=== PATIENT | male | born 1935 | race Caucasian/White ===

== ENCOUNTER 2016-12-22 15:49 | Emergency (ER) | payer MEDICARE, OTHER ==
[~2016-12-22] VITALS: Ht 172.7 cm; Wt 67.3 kg
[~2016-12-22 15:49] MED LIST: ASPI-496 PO; CEPH-376 PO; GABA300C10 PO; TAMS-11; TERA2CAP3 PO
[2016-12-22 15:52] VITALS: BP 120/71
[2016-12-22] MEDS ORDERED: LISI-170 PO (16:24)
[2016-12-22 16:55] LABS: HEMATOCRIT 45.4 % (39.2-51.8); HEMOGLOBIN 15.3 g/dL (13.7-18.0)
[2016-12-22 17:03] LABS: BLOOD UREA NITROGEN 16 mg/dL (7-18)
== END 2016-12-22 17:59 | disposition home or self-care (01) ==
LOC: ED 16:39
DX: S61.203A Unspecified open wound of left middle finger without damage to nail, initial encounter (principal); I10 Essential (primary) hypertension; Z87.891 Personal history of nicotine dependence; X58.XXXA Exposure to other specified factors, initial encounter; Y93.89 Activity, other specified; Y92.89 Other specified places as the place of occurrence of the external cause; Y99.8 Other external cause status
CPT/HCPCS: 36415; 80048; 82040; 85025; 99285

== ENCOUNTER → 2016-12-31 | Outpatient (CLI) | payer MEDICARE, OTHER ==
[~2016-12-31] MED LIST changes: +LISI-170 PO
== END | disposition home or self-care (01) ==
LOC: WOUND 07:38
PROVIDERS: ATTEND Physician Assistant
DX: S61.200D Unspecified open wound of right index finger without damage to nail, subsequent encounter (principal); I10 Essential (primary) hypertension; R60.0 Localized edema; I35.1 Nonrheumatic aortic (valve) insufficiency; F17.210 Nicotine dependence, cigarettes, uncomplicated; Z72.89 Other problems related to lifestyle; X58.XXXD Exposure to other specified factors, subsequent encounter
CPT/HCPCS: G0463; WOU0463

== ENCOUNTER 2019-09-08 17:56 | Inpatient (IN) | payer MEDICARE, OTHER ==
[~2019-09-08] VITALS: Ht 172.7 cm; Wt 70.8 kg
--- NOTE | 2019-09-08 18:18 | NUR ---
PT IN HOSPITAL GOWN, ALL CLOTHING REMOVED. PT UNABLE TO ASSIST WITH REMOVAL OF PANTS, PANTS CUT OFF WITH PT OKAY. PT ON CARDIAC AND VITALS MONITORS. PT A&OX4, C/O ALVAREZ, STATED FELL BACKWARDS 4 DAYS AGO AND HIT TOP OF HEAD ON WALL. PT DENIED LOC AFTER FALL. SMALL AREA OF SWELLING ON PALPATION. PER EMS, PT HAD SMALL SYNCOPAL EPISOPE WHEN THEY ARRIVED.
--- NOTE | 2019-09-08 18:18 | NUR ---
report received from hema wade.
[2019-09-08] MEDS ORDERED: ATORVASTATIN PO (18:24)
[2019-09-08] MEDS ORDERED: PLAVIX PO (18:24)
[2019-09-08] MEDS ORDERED: CHANTIX (18:24)
[2019-09-08] MEDS ORDERED: TERAZOSIN PO (18:24)
[2019-09-08] MEDS ORDERED: AMOXICILLIN (18:24)
[2019-09-08] MEDS ORDERED: ELLIPTA (18:24)
--- NOTE | 2019-09-08 18:24 | NUR ---
PT DAUGHTER HERE WITH PT JAYMIE MONSIVAIS - JAILENE [phone]
--- NOTE | 2019-09-08 18:32 | NUR ---
ONLY MED NAMES GIVEN FROM EMS. PT DAUGHTER STATED SHE CAN GET THE BOTTLES FROM PT HOME. MED REC UPDATED PER EMS MED LIST.
--- NOTE | 2019-09-08 18:44 | NUR ---
edmd at bedside to evaluate at this time.
--- NOTE | 2019-09-08 18:51 | NUR ---
report given to hilda wade.
[2019-09-08] MEDS ORDERED: SODIUM CHLORIDE FLUSH 10ML SYR IVF ONE (19:00)
--- NOTE | 2019-09-08 19:01 | NUR ---
Bladder scan showed >200ml.
[2019-09-08 19:08] LABS: BASOPHILS # (AUTO) 0.03 x10^3/uL (0-0.1); BASOPHILS % (AUTO) 0 % (0-1); EOSINOPHILS % (AUTO) 0 % (1-7); LYMPHOCYTES # (AUTO) 0.83 x10^3/uL (1-3.4); LYMPHOCYTES % (AUTO) 6 % (22-44); MD NO; MEAN CORPUSCULAR HEMOGLOBIN 29.7 pg (27.5-34.5); MEAN CORPUSCULAR HGB CONC 33.2 g/dL (33.2-36.2); MEAN CORPUSCULAR VOLUME 89.3 fL (81-97); MEAN PLATELET VOLUME 10.4 fL (7.4-10.4); MONOCYTES # (AUTO) 1.17 x10^3/uL (0.2-0.8); MONOCYTES % (AUTO) 9 % (2-9); NEUTROPHILS # (AUTO) 11.36 x10^3/uL (1.8-6.8); NEUTROPHILS % (AUTO) 85 % (42-75); PLATELET COUNT 296 x10^3/uL (130-400); RED BLOOD COUNT 5.23 x10^6/uL (4.38-5.82); RED CELL DISTRIBUTION WIDTH 14.3 % (9.4-14.8)
[2019-09-08 19:13] LABS: ALANINE AMINOTRANSFERASE 34 U/L (12-78); ALBUMIN 3.5 g/dL (3.4-5.0); ANION GAP 7 mmol/L (5-15); CALCIUM 8.4 mg/dL (8.5-10.1); CHLORIDE 99 mmol/L (98-107); CREATININE 0.89 mg/dL (0.7-1.3)
[2019-09-08 19:16] LABS: ALKALINE PHOSPHATASE 97 U/L (45-117); BILIRUBIN,TOTAL 1.2 mg/dL (0.2-1.0); TOTAL PROTEIN 7.2 g/dL (6.4-8.2)
[2019-09-08] MEDS ORDERED: LIDOCAINE 2%,20 ML JEL.PF.APP MM ONE (20:13)
--- NOTE | 2019-09-08 20:17 | NUR ---
Pt having 200cc+ of urine, unable to urinate, pt to have cath per md and pt okay with this. Pt reports severe retention. PT HAd urojet applied to penis prior to insertion attempt that will occur post 10 minutes.
--- NOTE | 2019-09-08 20:47 | NUR ---
Tsang Cath placed with MD Daniels, pt had 18 g double lumen. Pt tolerated procedure well.
--- NOTE | 2019-09-08 20:49 | NUR ---
UA COLLECTED AND SENT TO LAB.
--- NOTE | 2019-09-08 20:49 | NUR ---
Lyric keller in [facility] - 09/08/19 at 2049 by ALEKS UA collected and sent to lab.
[2019-09-08 21:05] LABS: MICROSCOPIC AUTO
[2019-09-08] MEDS ORDERED: HYDROcodone/APAP 5/325 TABLET PO ONE (23:00)
[2019-09-08] MEDS ORDERED: ONDANSETRON ODT 4 MG PO PRN (23:00)
[2019-09-08] MEDS ORDERED: hydrALAzine 20 MG/ML, 1ML IVPush PRN (23:00)
[2019-09-09 00:20] VITALS: BP 153/89
[2019-09-09] MEDS: HEPARIN 5,000 UNITS/ML, 1ML SQ SCH ×3 (00:43→15:29)
[2019-09-09] MEDS: GABAPENTIN 300 MG CAPSULE PO SCH ×4 (00:43→21:35)
[2019-09-09] MEDS: NS + 20MEQ KCL 1,000 ML IV SCH ×2 (00:44→12:22)
[2019-09-09 05:26] LABS: MEAN CORPUSCULAR HEMOGLOBIN 29.8 pg (27.5-34.5); MEAN CORPUSCULAR HGB CONC 32.8 g/dL (33.2-36.2); MEAN CORPUSCULAR VOLUME 90.6 fL (81-97); MEAN PLATELET VOLUME 10.2 fL (7.4-10.4); PLATELET COUNT 260 x10^3/uL (130-400); RED BLOOD COUNT 4.98 x10^6/uL (4.38-5.82); RED CELL DISTRIBUTION WIDTH 13.8 % (9.4-14.8)
[2019-09-09 05:39] LABS: ANION GAP 7 mmol/L (5-15); CALCIUM 8.3 mg/dL (8.5-10.1); CHLORIDE 101 mmol/L (98-107)
[2019-09-09 05:42] LABS: CREATININE 0.87 mg/dL (0.7-1.3)
[2019-09-09 05:56] LABS: BASOPHILS # (AUTO) 0.07 x10^3/uL (0-0.1); BASOPHILS % (AUTO) 1 % (0-1); EOSINOPHILS # (AUTO) 0.14 x10^3/uL (0-0.4); EOSINOPHILS % (AUTO) 1 % (1-7); LYMPHOCYTES # (AUTO) 1.77 x10^3/uL (1-3.4); LYMPHOCYTES % (AUTO) 13 % (22-44); MD SCAN; MONOCYTES # (AUTO) 1.52 x10^3/uL (0.2-0.8); MONOCYTES % (AUTO) 12 % (2-9); NEUTROPHILS # (AUTO) 9.78 x10^3/uL (1.8-6.8); NEUTROPHILS % (AUTO) 74 % (42-75)
[2019-09-09] MEDS: OXYcodone IR 5MG TABLET PO PRN ×2 (08:08→13:20)
[2019-09-09] MEDS: SENNA/DOCUSATE TABLET PO SCH (08:09)
[2019-09-09 08:54] VITALS: BP 117/72
[2019-09-09 09:19] LABS: CLOSTRIDIUM DIFFICILE ANTIGEN NEGATIVE; CLOSTRIDIUM DIFFICILE TOXIN NEGATIVE (Negative)
[2019-09-09 14:08] VITALS: BP 150/87
[2019-09-09] MEDS ORDERED: POTASSIUM CHLORIDE 40 MEQ in SODIUM CHLORIDE 0.9% 500 ML IV ONE (17:30)
[2019-09-09 19:32] VITALS: BP 122/73
[2019-09-09] MEDS: TERAZOSIN 2MG CAPSULE PO SCH (21:35)
[2019-09-09] MEDS: ATORVASTATIN 40 MG TABLET PO SCH (21:36)
[2019-09-10] MEDS: HEPARIN 5,000 UNITS/ML, 1ML SQ SCH ×3 (01:02→17:10)
[2019-09-10 01:07] VITALS: BP 150/80
[2019-09-10] MEDS: NS + 20MEQ KCL 1,000 ML IV SCH ×2 (05:25→15:21)
[2019-09-10 05:41] LABS: ANION GAP 6 mmol/L (5-15); CALCIUM 7.9 mg/dL (8.5-10.1); CHLORIDE 106 mmol/L (98-107); CREATININE 0.82 mg/dL (0.7-1.3)
[2019-09-10 05:54] LABS: MEAN CORPUSCULAR HEMOGLOBIN 29.6 pg (27.5-34.5); MEAN CORPUSCULAR HGB CONC 32.8 g/dL (33.2-36.2); MEAN CORPUSCULAR VOLUME 90.4 fL (81-97); RED BLOOD COUNT 4.65 x10^6/uL (4.38-5.82); RED CELL DISTRIBUTION WIDTH 14.2 % (9.4-14.8)
[2019-09-10 06:18] LABS: BASOPHILS # (AUTO) 0.02 x10^3/uL (0-0.1); BASOPHILS % (AUTO) 0 % (0-1); EOSINOPHILS # (AUTO) 0.16 x10^3/uL (0-0.4); EOSINOPHILS % (AUTO) 1 % (1-7); LYMPHOCYTES % (AUTO) 11 % (22-44); MD SCAN; MEAN PLATELET VOLUME 10.3 fL (7.4-10.4); MONOCYTES # (AUTO) 1.16 x10^3/uL (0.2-0.8); MONOCYTES % (AUTO) 10 % (2-9); NEUTROPHILS # (AUTO) 8.66 x10^3/uL (1.8-6.8); NEUTROPHILS % (AUTO) 77 % (42-75); PLATELET COUNT 232 x10^3/uL (130-400)
[2019-09-10 07:47] VITALS: BP 146/77
[2019-09-10] MEDS: LISINOPRIL 10 MG TABLET PO SCH (08:04)
[2019-09-10] MEDS: GABAPENTIN 300 MG CAPSULE PO SCH ×3 (08:04→22:05)
[2019-09-10] MEDS: SENNA/DOCUSATE TABLET PO SCH (08:04)
[2019-09-10] MEDS: OXYcodone IR 5MG TABLET PO PRN (08:05)
[2019-09-10 14:05] VITALS: BP 144/75
[2019-09-10 18:56] VITALS: BP 147/62
[2019-09-10] MEDS: TERAZOSIN 2MG CAPSULE PO SCH (22:05)
[2019-09-10] MEDS: ATORVASTATIN 40 MG TABLET PO SCH (22:05)
[2019-09-11 00:38] VITALS: BP 145/93
[2019-09-11] MEDS: HEPARIN 5,000 UNITS/ML, 1ML SQ SCH ×3 (01:43→17:45)
[2019-09-11] MEDS: NS + 20MEQ KCL 1,000 ML IV SCH ×3 (01:43→23:18)
[2019-09-11] MEDS: ACETAMINOPHEN 325 MG TABLET PO PRN ×2 (01:48→20:56)
[2019-09-11 05:46] LABS: ANION GAP 7 mmol/L (5-15); BASOPHILS # (AUTO) 0.07 x10^3/uL (0-0.1); BASOPHILS % (AUTO) 1 % (0-1); CALCIUM 7.8 mg/dL (8.5-10.1); CHLORIDE 108 mmol/L (98-107); CREATININE 0.81 mg/dL (0.7-1.3); EOSINOPHILS # (AUTO) 0.22 x10^3/uL (0-0.4); EOSINOPHILS % (AUTO) 2 % (1-7); LYMPHOCYTES # (AUTO) 1.58 x10^3/uL (1-3.4); LYMPHOCYTES % (AUTO) 13 % (22-44); MD NO; MEAN CORPUSCULAR HEMOGLOBIN 29.9 pg (27.5-34.5); MEAN CORPUSCULAR HGB CONC 32.7 g/dL (33.2-36.2); MEAN CORPUSCULAR VOLUME 91.7 fL (81-97); MEAN PLATELET VOLUME 10.1 fL (7.4-10.4); MONOCYTES # (AUTO) 1.22 x10^3/uL (0.2-0.8); MONOCYTES % (AUTO) 10 % (2-9); NEUTROPHILS # (AUTO) 9.27 x10^3/uL (1.8-6.8); NEUTROPHILS % (AUTO) 75 % (42-75); PLATELET COUNT 236 x10^3/uL (130-400)
[2019-09-11 07:18] VITALS: BP 129/73
[2019-09-11] MEDS: GABAPENTIN 300 MG CAPSULE PO SCH ×3 (08:59→20:56)
[2019-09-11] MEDS: LISINOPRIL 10 MG TABLET PO SCH (08:59)
[2019-09-11] MEDS: SENNA/DOCUSATE TABLET PO SCH (09:00)
--- NOTE | 2019-09-11 12:32 | NUR ---
OT evaluation completed. Patient is unsafe for return home at this time. He will benefit from inpatient therapies at [facility] Addendum: 09/11/19 at 1305 by Hadley Velasquez OT Amended: Links added.
[2019-09-11 12:48] VITALS: BP 154/76
[2019-09-11] MEDS ORDERED: GADOTERATE 10 MMOL/20 ML SYR ONE (16:50)
[2019-09-11 19:04] VITALS: BP 182/84
[2019-09-11 19:45] VITALS: BP 186/96
[2019-09-11 20:27] VITALS: BP 165/80
[2019-09-11] MEDS: ATORVASTATIN 40 MG TABLET PO SCH (20:56)
[2019-09-11] MEDS: TERAZOSIN 2MG CAPSULE PO SCH (20:56)
[2019-09-12 01:05] VITALS: BP 100/60
[2019-09-12] MEDS: HEPARIN 5,000 UNITS/ML, 1ML SQ SCH ×3 (01:51→17:14)
[2019-09-12 05:09] LABS: ANION GAP 5 mmol/L (5-15); CHLORIDE 105 mmol/L (98-107); CREATININE 0.76 mg/dL (0.7-1.3)
[2019-09-12 06:20] LABS: BASOPHILS # (AUTO) 0.03 x10^3/uL (0-0.1); BASOPHILS % (AUTO) 0 % (0-1); EOSINOPHILS # (AUTO) 0.25 x10^3/uL (0-0.4); EOSINOPHILS % (AUTO) 2 % (1-7); LYMPHOCYTES # (AUTO) 1.61 x10^3/uL (1-3.4); LYMPHOCYTES % (AUTO) 13 % (22-44); MD SCAN; MEAN CORPUSCULAR HGB CONC 32.6 g/dL (33.2-36.2); MEAN CORPUSCULAR VOLUME 91.8 fL (81-97); MEAN PLATELET VOLUME 10.3 fL (7.4-10.4); MONOCYTES # (AUTO) 1.43 x10^3/uL (0.2-0.8); MONOCYTES % (AUTO) 11 % (2-9); NEUTROPHILS # (AUTO) 9.34 x10^3/uL (1.8-6.8); NEUTROPHILS % (AUTO) 74 % (42-75); PLATELET COUNT 254 x10^3/uL (130-400); RED BLOOD COUNT 4.47 x10^6/uL (4.38-5.82); RED CELL DISTRIBUTION WIDTH 13.9 % (9.4-14.8)
[2019-09-12 07:42] VITALS: BP 169/76
[2019-09-12 08:30] VITALS: BP 156/72
[2019-09-12] MEDS: OXYcodone IR 5MG TABLET PO PRN ×2 (10:27→17:14)
[2019-09-12] MEDS: GABAPENTIN 300 MG CAPSULE PO SCH ×3 (10:27→20:58)
[2019-09-12] MEDS: SENNA/DOCUSATE TABLET PO SCH (10:27)
[2019-09-12] MEDS: LISINOPRIL 10 MG TABLET PO SCH (10:27)
[2019-09-12] MEDS: NS + 20MEQ KCL 1,000 ML IV SCH (14:09)
[2019-09-12 14:16] VITALS: BP 147/76
[2019-09-12] MEDS: SODIUM CHLORIDE FLUSH 10ML SYR IVF SCH ×2 (17:30→20:57)
[2019-09-12 20:41] VITALS: BP 147/79
[2019-09-12] MEDS: TERAZOSIN 2MG CAPSULE PO SCH (20:58)
[2019-09-12] MEDS: ATORVASTATIN 40 MG TABLET PO SCH (20:58)
[2019-09-13] MEDS: HEPARIN 5,000 UNITS/ML, 1ML SQ SCH ×3 (01:14→16:19)
[2019-09-13 01:17] VITALS: BP 154/80
[2019-09-13] MEDS: ACETAMINOPHEN 325 MG TABLET PO PRN (01:21)
[2019-09-13] MEDS: POLYETHYLENE GLYCOL 17 GM PACKET PO PRN (02:44)
[2019-09-13 06:01] LABS: ANION GAP 8 mmol/L (5-15); CALCIUM 8.3 mg/dL (8.5-10.1); CHLORIDE 106 mmol/L (98-107); CREATININE 0.75 mg/dL (0.7-1.3)
[2019-09-13 06:02] LABS: MEAN CORPUSCULAR HEMOGLOBIN 29.9 pg (27.5-34.5); MEAN CORPUSCULAR VOLUME 90.8 fL (81-97); MEAN PLATELET VOLUME 10.4 fL (7.4-10.4); PLATELET COUNT 277 x10^3/uL (130-400); RED BLOOD COUNT 4.66 x10^6/uL (4.38-5.82); RED CELL DISTRIBUTION WIDTH 14.6 % (9.4-14.8)
[2019-09-13 06:37] LABS: BASOPHILS # (AUTO) 0.04 x10^3/uL (0-0.1); BASOPHILS % (AUTO) 0 % (0-1); EOSINOPHILS # (AUTO) 0.31 x10^3/uL (0-0.4); EOSINOPHILS % (AUTO) 3 % (1-7); LYMPHOCYTES # (AUTO) 1.39 x10^3/uL (1-3.4); LYMPHOCYTES % (AUTO) 12 % (22-44); MD SCAN; MONOCYTES # (AUTO) 1.11 x10^3/uL (0.2-0.8); MONOCYTES % (AUTO) 9 % (2-9); NEUTROPHILS # (AUTO) 9.12 x10^3/uL (1.8-6.8); NEUTROPHILS % (AUTO) 76 % (42-75)
[2019-09-13 06:48] VITALS: BP 126/76
[2019-09-13] MEDS: SENNA/DOCUSATE TABLET PO SCH (08:34)
[2019-09-13] MEDS: LISINOPRIL 10 MG TABLET PO SCH (08:34)
[2019-09-13] MEDS: GABAPENTIN 300 MG CAPSULE PO SCH ×3 (08:39→21:00)
[2019-09-13] MEDS: SODIUM CHLORIDE FLUSH 10ML SYR IVF SCH ×2 (09:01→21:00)
[2019-09-13] MEDS: OXYcodone IR 5MG TABLET PO PRN (13:42)
[2019-09-13 13:54] VITALS: BP 129/74
[2019-09-13 20:23] VITALS: BP 151/79
[2019-09-13] MEDS: TERAZOSIN 2MG CAPSULE PO SCH (21:00)
[2019-09-13] MEDS: ATORVASTATIN 40 MG TABLET PO SCH (21:00)
[2019-09-14] MEDS: HEPARIN 5,000 UNITS/ML, 1ML SQ SCH ×2 (01:32→07:58)
[2019-09-14] MEDS: OXYcodone IR 5MG TABLET PO PRN ×4 (01:35→20:52)
[2019-09-14 02:46] VITALS: BP 131/76
[2019-09-14 06:34] LABS: ANION GAP 8 mmol/L (5-15); CALCIUM 8.3 mg/dL (8.5-10.1); CHLORIDE 102 mmol/L (98-107); CREATININE 0.76 mg/dL (0.7-1.3)
[2019-09-14 06:40] LABS: MEAN CORPUSCULAR HEMOGLOBIN 30.1 pg (27.5-34.5); MEAN CORPUSCULAR HGB CONC 32.7 g/dL (33.2-36.2); MEAN CORPUSCULAR VOLUME 92.1 fL (81-97); MEAN PLATELET VOLUME 10.7 fL (7.4-10.4); PLATELET COUNT 290 x10^3/uL (130-400); RED BLOOD COUNT 4.67 x10^6/uL (4.38-5.82); RED CELL DISTRIBUTION WIDTH 14.4 % (9.4-14.8)
[2019-09-14 07:19] LABS: BASOPHILS # (AUTO) 0.07 x10^3/uL (0-0.1); BASOPHILS % (AUTO) 1 % (0-1); EOSINOPHILS # (AUTO) 0.31 x10^3/uL (0-0.4); EOSINOPHILS % (AUTO) 3 % (1-7); LYMPHOCYTES # (AUTO) 1.03 x10^3/uL (1-3.4); LYMPHOCYTES % (AUTO) 9 % (22-44); MD SCAN; MONOCYTES # (AUTO) 1.24 x10^3/uL (0.2-0.8); MONOCYTES % (AUTO) 11 % (2-9); NEUTROPHILS # (AUTO) 8.96 x10^3/uL (1.8-6.8); NEUTROPHILS % (AUTO) 77 % (42-75)
[2019-09-14 07:22] VITALS: BP 129/75
[2019-09-14] MEDS: SODIUM CHLORIDE FLUSH 10ML SYR IVF SCH ×2 (07:58→20:52)
[2019-09-14] MEDS: GABAPENTIN 300 MG CAPSULE PO SCH ×3 (07:58→20:51)
[2019-09-14] MEDS: LISINOPRIL 10 MG TABLET PO SCH (07:58)
[2019-09-14] MEDS: SENNA/DOCUSATE TABLET PO SCH (07:58)
[2019-09-14 11:05] LABS: INTERNATIONAL NORMALIZED RATIO 1.01 (0.93-1.1); PROTHROMBIN TIME 10.7 Seconds (9.6-11.5)
[2019-09-14 13:58] VITALS: BP 146/76
[2019-09-14] MEDS: POLYETHYLENE GLYCOL 17 GM PACKET PO PRN (14:15)
[2019-09-14] MEDS ORDERED: HEPARIN 5,000 UNITS/ML, 1ML SQ SCH (16:30)
[2019-09-14 20:01] VITALS: BP 139/77
[2019-09-14] MEDS: TERAZOSIN 2MG CAPSULE PO SCH (20:51)
[2019-09-14] MEDS: ATORVASTATIN 40 MG TABLET PO SCH (20:51)
[2019-09-15 01:03] VITALS: BP 127/67
[2019-09-15 07:09] LABS: MEAN CORPUSCULAR HEMOGLOBIN 29.8 pg (27.5-34.5); MEAN CORPUSCULAR HGB CONC 32.6 g/dL (33.2-36.2); MEAN CORPUSCULAR VOLUME 91.3 fL (81-97); RED BLOOD COUNT 5.07 x10^6/uL (4.38-5.82); RED CELL DISTRIBUTION WIDTH 14.3 % (9.4-14.8)
[2019-09-15 07:17] LABS: ANION GAP 9 mmol/L (5-15); CALCIUM 8.4 mg/dL (8.5-10.1); CHLORIDE 103 mmol/L (98-107)
[2019-09-15 07:24] LABS: MEAN PLATELET VOLUME 10.1 fL (7.4-10.4); PLATELET COUNT 351 x10^3/uL (130-400)
[2019-09-15 07:25] LABS: BASOPHILS # (AUTO) 0.11 x10^3/uL (0-0.1); BASOPHILS % (AUTO) 1 % (0-1); EOSINOPHILS # (AUTO) 0.49 x10^3/uL (0-0.4); EOSINOPHILS % (AUTO) 4 % (1-7); LYMPHOCYTES # (AUTO) 1.18 x10^3/uL (1-3.4); LYMPHOCYTES % (AUTO) 11 % (22-44); MD SCAN; MONOCYTES # (AUTO) 0.99 x10^3/uL (0.2-0.8); MONOCYTES % (AUTO) 9 % (2-9); NEUTROPHILS # (AUTO) 8.42 x10^3/uL (1.8-6.8); NEUTROPHILS % (AUTO) 75 % (42-75)
[2019-09-15 07:50] VITALS: BP 93/46
[2019-09-15 08:05] VITALS: BP 110/68
[2019-09-15] MEDS ORDERED: BACITRACIN 50,000 UNIT ONE (08:08)
[2019-09-15] MEDS ORDERED: BUPIVACAINE/PF-EPI 0.5% 1:200K ONE (08:08)
[2019-09-15] MEDS ORDERED: FENTANYL PF 250 MCG/5ML ONE ×3 (09:18→11:13)
[2019-09-15] MEDS ORDERED: SUGAMMADEX 200 MG/2 ML IVPush ONE (09:19)
[2019-09-15] MEDS: LISINOPRIL 10 MG TABLET PO SCH (09:20)
[2019-09-15] MEDS ORDERED: NEOSTIGMINE 1 MG/ML, 10ML ONE (09:20)
[2019-09-15] MEDS: SODIUM CHLORIDE FLUSH 10ML SYR IVF SCH ×2 (09:20→20:21)
[2019-09-15] MEDS ORDERED: PROPOFOL 10 MG/ML, 20ML ONE (09:20)
[2019-09-15] MEDS ORDERED: GLYCOPYRROLATE 0.2MG/1ML, 5ML ONE (09:20)
[2019-09-15] MEDS ORDERED: CEFAZOLIN 1,000 MG ONE (09:20)
[2019-09-15] MEDS ORDERED: ROCURONIUM 10MG/ML,5ML ONE (09:20)
[2019-09-15] MEDS: GABAPENTIN 300 MG CAPSULE PO SCH ×3 (09:21→20:20)
[2019-09-15] MEDS: SENNA/DOCUSATE TABLET PO SCH (09:21)
[2019-09-15] MEDS ORDERED: CHLORHEXIDINE 15 ML UDC MM STA (09:26)
[2019-09-15] MEDS ORDERED: ACETAMINOPHEN 500 MG TABLET PO ONE (09:30)
[2019-09-15] MEDS ORDERED: GABAPENTIN 300 MG CAPSULE PO ONE (09:30)
[2019-09-15] MEDS ORDERED: PROPOFOL 100 ML ONE (09:41)
[2019-09-15] MEDS ORDERED: ALBUTEROL SULFATE 2.5 MG/3 ML NPPB PRN (10:00)
[2019-09-15] MEDS ORDERED: LABETALOL 5MG/ML, 20ML IV PRN (10:00)
[2019-09-15] MEDS ORDERED: ONDANSETRON 2MG/ML, 2ML IVPush PRN (10:00)
[2019-09-15] MEDS ORDERED: OXYcodone 5 MG/5 ML ORAL.SOL UDC PO PRN (10:00)
[2019-09-15] MEDS ORDERED: hydrALAzine 20 MG/ML, 1ML IV PRN (10:00)
[2019-09-15] MEDS ORDERED: FENTANYL PF 100 MCG/2ML IV PRN (10:00)
[2019-09-15] MEDS ORDERED: ALBUTEROL/IPRATROPIUM 2.5MG/0.5MG, 3 ML NPPB PRN (10:00)
[2019-09-15] MEDS ORDERED: morphine SULFATE 10 MG/ML, 1ML IVPush PRN (10:00)
[2019-09-15] MEDS ORDERED: MEPERIDINE/PF 25MG/0.5ML IVPush PRN (10:00)
[2019-09-15] MEDS ORDERED: HYDROmorphone 1 MG/ML, 1ML INJ IVPush PRN (10:00)
[2019-09-15] MEDS ORDERED: PHENYLEPHRINE 10 MG/ML ONE (10:11)
[2019-09-15] MEDS ORDERED: BUPIVACAINE/PF-EPI 0.25% 1:200K ONE (10:14)
[2019-09-15] MEDS ORDERED: DEXAMETHASONE 4 MG/ML, 1ML ONE ×2 (10:25→10:26)
[2019-09-15] MEDS ORDERED: VANCOMYCIN 1,000 MG ONE (11:12)
[2019-09-15] MEDS ORDERED: EPHEDRINE 50 MG/ML, 1ML ONE (11:23)
[2019-09-15] MEDS ORDERED: VASOPRESSIN 20 UNIT/ML, 1ML ONE (11:38)
[2019-09-15] MEDS ORDERED: DIAZEPAM 5 MG TABLET PO PRN (12:30)
[2019-09-15] MEDS ORDERED: HYDROmorphone PCA 30 MG/30 ML IV PRN (12:30)
[2019-09-15] MEDS ORDERED: MEPERIDINE/PF 100 MG/ML IM PRN (12:30)
[2019-09-15] MEDS ORDERED: PHARMACY MAY ADJ FOR RENAL FX MC PRN (12:30)
[2019-09-15] MEDS ORDERED: METHOCARBAMOL 1,000 MG in DEXTROSE 5% 100 ML IV ONE (12:30)
[2019-09-15 13:40] VITALS: BP 125/80
[2019-09-15] MEDS: CEFAZOLIN PMX 1GM/50ML 50 ML IVPB SCH (17:28)
[2019-09-15] MEDS: TIZANIDINE 4MG TABLET PO SCH (17:35)
[2019-09-15 19:40] VITALS: BP 137/84
[2019-09-15] MEDS: TERAZOSIN 2MG CAPSULE PO SCH (20:20)
[2019-09-15] MEDS: ATORVASTATIN 40 MG TABLET PO SCH (20:20)
[2019-09-15 23:35] VITALS: BP 115/71
[2019-09-16] MEDS: CEFAZOLIN PMX 1GM/50ML 50 ML IVPB SCH (01:48)
[2019-09-16] MEDS: TIZANIDINE 4MG TABLET PO SCH ×3 (01:48→17:07)
[2019-09-16 04:09] VITALS: BP 130/76
[2019-09-16] MEDS: POLYETHYLENE GLYCOL 17 GM PACKET PO PRN (05:29)
[2019-09-16 06:05] LABS: ANION GAP 6 mmol/L (5-15); CALCIUM 8.5 mg/dL (8.5-10.1); CHLORIDE 105 mmol/L (98-107); CREATININE 0.79 mg/dL (0.7-1.3)
[2019-09-16 06:22] LABS: MEAN CORPUSCULAR HEMOGLOBIN 29.5 pg (27.5-34.5); MEAN CORPUSCULAR HGB CONC 32.5 g/dL (33.2-36.2); MEAN CORPUSCULAR VOLUME 90.9 fL (81-97); RED BLOOD COUNT 4.79 x10^6/uL (4.38-5.82); RED CELL DISTRIBUTION WIDTH 14.5 % (9.4-14.8)
[2019-09-16 06:46] LABS: BASOPHILS # (AUTO) 0.01 x10^3/uL (0-0.1); BASOPHILS % (AUTO) 0 % (0-1); EOSINOPHILS # (AUTO) 0.16 x10^3/uL (0-0.4); EOSINOPHILS % (AUTO) 1 % (1-7); LYMPHOCYTES % (AUTO) 6 % (22-44); MD SCAN; MONOCYTES # (AUTO) 1.36 x10^3/uL (0.2-0.8); MONOCYTES % (AUTO) 8 % (2-9); NEUTROPHILS # (AUTO) 13.99 x10^3/uL (1.8-6.8); NEUTROPHILS % (AUTO) 85 % (42-75); PLATELET COUNT 395 x10^3/uL (130-400)
[2019-09-16 06:51] VITALS: BP 126/74
[2019-09-16] MEDS: SODIUM CHLORIDE FLUSH 10ML SYR IVF SCH ×2 (09:00→20:18)
[2019-09-16] MEDS ORDERED: HYDROcodone/APAP 10/325 MG TABLET PO PRN (09:00)
[2019-09-16] MEDS: SENNA/DOCUSATE TABLET PO SCH (09:02)
[2019-09-16] MEDS: GABAPENTIN 300 MG CAPSULE PO SCH ×3 (09:02→20:17)
[2019-09-16] MEDS: OXYcodone IR 5MG TABLET PO PRN ×3 (09:02→23:24)
[2019-09-16] MEDS: LISINOPRIL 10 MG TABLET PO SCH (09:03)
[2019-09-16 12:18] VITALS: BP 137/78
[2019-09-16] MEDS: BISACODYL 10 MG SUPP PR PRN (14:51)
[2019-09-16 20:15] VITALS: BP 165/80
[2019-09-16] MEDS: ATORVASTATIN 40 MG TABLET PO SCH (20:17)
[2019-09-16] MEDS: TERAZOSIN 2MG CAPSULE PO SCH (20:17)
[2019-09-17 01:57] VITALS: BP 150/79
[2019-09-17] MEDS: TIZANIDINE 4MG TABLET PO SCH ×3 (02:01→17:04)
[2019-09-17 05:20] LABS: BASOPHILS # (AUTO) 0.07 x10^3/uL (0-0.1); BASOPHILS % (AUTO) 1 % (0-1); EOSINOPHILS # (AUTO) 0.21 x10^3/uL (0-0.4); EOSINOPHILS % (AUTO) 2 % (1-7); LYMPHOCYTES # (AUTO) 1.07 x10^3/uL (1-3.4); LYMPHOCYTES % (AUTO) 8 % (22-44); MD NO; MEAN CORPUSCULAR HEMOGLOBIN 29.5 pg (27.5-34.5); MEAN CORPUSCULAR HGB CONC 32.3 g/dL (33.2-36.2); MEAN CORPUSCULAR VOLUME 91.1 fL (81-97); MEAN PLATELET VOLUME 9.3 fL (7.4-10.4); MONOCYTES # (AUTO) 1.34 x10^3/uL (0.2-0.8); MONOCYTES % (AUTO) 10 % (2-9); NEUTROPHILS # (AUTO) 10.19 x10^3/uL (1.8-6.8); NEUTROPHILS % (AUTO) 79 % (42-75); PLATELET COUNT 391 x10^3/uL (130-400); RED BLOOD COUNT 4.62 x10^6/uL (4.38-5.82); RED CELL DISTRIBUTION WIDTH 14.5 % (9.4-14.8)
[2019-09-17 05:26] LABS: ANION GAP 6 mmol/L (5-15); CALCIUM 8.2 mg/dL (8.5-10.1); CHLORIDE 104 mmol/L (98-107); CREATININE 0.73 mg/dL (0.7-1.3)
[2019-09-17] MEDS: POLYETHYLENE GLYCOL 17 GM PACKET PO PRN (05:56)
[2019-09-17 07:25] VITALS: BP 138/76
[2019-09-17] MEDS: BISACODYL 10 MG SUPP PR PRN (07:39)
[2019-09-17] MEDS: SODIUM CHLORIDE FLUSH 10ML SYR IVF SCH ×2 (09:00→20:28)
[2019-09-17] MEDS: SENNA/DOCUSATE TABLET PO SCH (09:05)
[2019-09-17] MEDS: GABAPENTIN 300 MG CAPSULE PO SCH ×3 (09:06→20:28)
[2019-09-17] MEDS: OXYcodone IR 5MG TABLET PO PRN ×2 (09:06→20:36)
[2019-09-17] MEDS: ACETAMINOPHEN 325 MG TABLET PO PRN (09:06)
[2019-09-17] MEDS: LISINOPRIL 10 MG TABLET PO SCH (09:06)
[2019-09-17 13:04] VITALS: BP 127/75
[2019-09-17 19:57] VITALS: BP 134/81
[2019-09-17] MEDS: ATORVASTATIN 40 MG TABLET PO SCH (20:28)
[2019-09-17] MEDS: TERAZOSIN 2MG CAPSULE PO SCH (20:28)
[2019-09-18 01:19] VITALS: BP 117/71
[2019-09-18] MEDS: TIZANIDINE 4MG TABLET PO SCH ×2 (01:44→09:20)
[2019-09-18 05:21] LABS: BASOPHILS # (AUTO) 0.06 x10^3/uL (0-0.1); BASOPHILS % (AUTO) 1 % (0-1); EOSINOPHILS # (AUTO) 0.47 x10^3/uL (0-0.4); EOSINOPHILS % (AUTO) 4 % (1-7); LYMPHOCYTES # (AUTO) 1.21 x10^3/uL (1-3.4); LYMPHOCYTES % (AUTO) 10 % (22-44); MD NO; MEAN CORPUSCULAR HEMOGLOBIN 29.5 pg (27.5-34.5); MEAN CORPUSCULAR HGB CONC 32.2 g/dL (33.2-36.2); MEAN CORPUSCULAR VOLUME 91.6 fL (81-97); MEAN PLATELET VOLUME 9.2 fL (7.4-10.4); MONOCYTES # (AUTO) 1.35 x10^3/uL (0.2-0.8); MONOCYTES % (AUTO) 11 % (2-9); NEUTROPHILS # (AUTO) 9.52 x10^3/uL (1.8-6.8); NEUTROPHILS % (AUTO) 75 % (42-75); PLATELET COUNT 444 x10^3/uL (130-400); RED BLOOD COUNT 4.53 x10^6/uL (4.38-5.82); RED CELL DISTRIBUTION WIDTH 14.4 % (9.4-14.8)
[2019-09-18 05:31] LABS: ANION GAP 7 mmol/L (5-15); CALCIUM 8.4 mg/dL (8.5-10.1); CHLORIDE 103 mmol/L (98-107)
[2019-09-18 05:32] LABS: CREATININE 0.77 mg/dL (0.7-1.3)
[2019-09-18 06:53] VITALS: BP 126/78
[2019-09-18] MEDS: SODIUM CHLORIDE FLUSH 10ML SYR IVF SCH (09:00)
[2019-09-18] MEDS: LISINOPRIL 10 MG TABLET PO SCH (09:19)
[2019-09-18] MEDS: SENNA/DOCUSATE TABLET PO SCH ×4 (09:19→09:47)
[2019-09-18] MEDS: GABAPENTIN 300 MG CAPSULE PO SCH (09:20)
[2019-09-18] MEDS: OXYcodone IR 5MG TABLET PO PRN ×2 (09:20→13:40)
[2019-09-18] MEDS: ACETAMINOPHEN 325 MG TABLET PO PRN (09:47)
[2019-09-18] MEDS ORDERED: DIAZ5TAB4 PO (11:45)
[2019-09-18] MEDS ORDERED: OXYC5TAB3 PO (11:45)
[2019-09-18] MEDS ORDERED: SENN-193 PO (11:45)
== END 2019-09-18 14:20 | DRG 518 ==
LOC: ED 19:49 → EDIP 22:09 → 4NE 23:15
PROVIDERS: ADMIT Family Medicine; ATTEND Hospitalist
PROC: 00NW0ZZ Release Cervical Spinal Cord, Open Approach (ICD-10-PCS; principal; 2019-09-15 10:00)
DX: M48.02 Spinal stenosis, cervical region (principal); R53.2 Functional quadriplegia; E87.1 Hypo-osmolality and hyponatremia; G95.89 Other specified diseases of spinal cord; M48.061 Spinal stenosis, lumbar region without neurogenic claudication; I10 Essential (primary) hypertension; N40.0 Benign prostatic hyperplasia without lower urinary tract symptoms; E87.6 Hypokalemia; G47.33 Obstructive sleep apnea (adult) (pediatric); I73.9 Peripheral vascular disease, unspecified; J44.9 Chronic obstructive pulmonary disease, unspecified; G47.30 Sleep apnea, unspecified; M50.30 Other cervical disc degeneration, unspecified cervical region; N40.1 Benign prostatic hyperplasia with lower urinary tract symptoms; R33.8 Other retention of urine; Z86.73 Personal history of transient ischemic attack (TIA), and cerebral infarction without residual deficits; Z87.891 Personal history of nicotine dependence; Z98.1 Arthrodesis status; Z79.899 Other long term (current) drug therapy
CPT/HCPCS: 36415; 70450; 71045; 72040; 72125; 72131; 72141; 72157; 73523; 80048; 80053; 81001; 82962; 85025; 85610; 85730; 87324; 93005; 95938; 95941; G0378; J0690; J1100; J1170; J1644; J2704; J2710; J3010; J3370; J3480; A9575; J0360; J2370; J2800; J7040; U0001-CS